=== PATIENT | male | born 1940 | race Caucasian/White ===

== ENCOUNTER 2022-09-24 12:30 | Emergency (ER) | payer OTHER, MEDICARE ==
[2022-09-24 13:31] VITALS: BP 120/69; PULSE 93; RESP 18; TEMP 98.9; BMI 26.6
[2022-09-24 15:34] LABS: BASO % 0.2 % (0-2.0); EOS % 1.2 % (0-4.5); HEMATOCRIT 42.4 % (35.4-49); HEMOGLOBIN 15.1 GM/dL (11.7-16.9); LYMPH % 16.4 % (8-40); MCHC 35.6 g/dl (32.0-35.9); MEAN PLT VOLUME 8.5 fl (7.5-11.1); NEUT % 76.2 % (42.8-82.8); PLATELET COUNT 184 10^3/uL (134-434); RDW 13.7 % (11.9-15.9); WHITE BLOOD COUNT 9.3 K/mm3 (4.0-10.0)
[2022-09-24 15:39] LABS: INR 1.05 (0.83-1.09); PROTHROMBIN TIME (PATIENT) 12.2 SEC (9.7-13.0)
[2022-09-24 15:41] LABS: ACTIVATED PTT 35.1 SECONDS (25.2-36.5)
[2022-09-24 15:53] LABS: CALCIUM 8.9 mg/dL (8.5-10.1)
[2022-09-24 15:54] LABS: ALBUMIN 3.6 g/dl (3.4-5.0); BLOOD UREA NITROGEN 17.5 mg/dL (7-18); MAGNESIUM 2.1 mg/dL (1.8-2.4)
[2022-09-24 15:59] LABS: BILIRUBIN,TOTAL 0.8 mg/dL (0.2-1); TOT PROT 7.5 g/dl (6.4-8.2)
== END 2022-09-24 18:30 | disposition home or self-care (01) ==
LOC: JER 12:30
PROC: 2W3GX1Z Immobilization of Right Thumb using Splint (ICD-10-PCS; principal; 2022-09-24)
DX: S62.514A Nondisplaced fracture of proximal phalanx of right thumb, initial encounter for closed fracture (principal); R51.9 Headache, unspecified; M54.2 Cervicalgia; M79.641 Pain in right hand; W10.8XXA Fall (on) (from) other stairs and steps, initial encounter; Z20.822 Contact with and (suspected) exposure to COVID-19
CPT/HCPCS: 36415; 70450-TC; 71045-TC-FY; 72125-TC; 73130-TC-RT-FY; 80053; 83735; 84484; 85025; 85610; 85730; 86850; 86900; 86901; 93005; 93010; 99285-25; C9803-CS; U0003; U0005